=== PATIENT | male | born 1975 | race Two or more races ===

== ENCOUNTER 2023-11-09 05:46 | Day surgery (SDC) | payer OTHER ==
[2023-11-09] MEDS ORDERED: PERCOCET 5-3251 EACH PO (09:13)
[2023-11-09] MEDS ORDERED: COLACE100 MG PO (09:13)
[2023-11-09] MEDS ORDERED: NEURONTIN300 MG PO (09:13)
== END 2023-11-09 14:00 | disposition home or self-care (01) ==
LOC: CIR.AMB 05:46
PROVIDERS: ATTEND Surgery
DX: K40.90 Unilateral inguinal hernia, without obstruction or gangrene, not specified as recurrent (principal); Z20.822 Contact with and (suspected) exposure to COVID-19
CPT/HCPCS: 49650; C1781